=== PATIENT | male | born 1965 ===

== ENCOUNTER 2018-09-18 09:34 | Inpatient (IN) ==
[2018-09-18] MEDS ORDERED: NITROGLYCERIN TOP ONE (10:10)
[2018-09-18 10:23] LABS: BASO# 0.03 X1000 (0.0-0.2); BASO% 0.4 % (0.0-0.8); EOS# 0.25 X1000 (0.0-0.7); HEMATOCRIT 37.1 % (42.0-52.0); HEMOGLOBIN 13.1 g/dL (14.0-18.0); IMM GRAN# 0.05 X1000 (0.0-0.04); IMM GRAN% 0.6 % (0.0-0.5); LYMPH# 1.56 X1000 (1.2-3.4); LYMPH% 18.5 % (20.5-51.1); MCH 29.9 PG (27-31); MCHC 35.3 g/dL (33-37); MCV 84.7 FL (81-99); MONO# 0.75 X1000 (0.11-0.59); MONO% 8.9 % (1.7-9.3); NEUT# 5.77 X1000 (1.4-6.5); NEUT% 68.6 % (42.2-75.2); PLT 255 X1000 (130-400); RBC 4.38 XMIL (4.7-6.1); RDW 13.2 % (11.5-14.5); WBC 8.41 X1000 (4.8-10.8)
--- NOTE | 2018-09-18 10:28 | Diag Imaging Result Doc PS360 ---
EXAM: CHEST-2 VIEWS 09/18/2018 HISTORY: cp TECHNIQUE: PA and lateral chest COMMENT: There is no evidence of acute cardiac or pulmonary disease. There are no previous studies available for comparison. IMPRESSION: No evidence of acute disease. Electronically signed by Yury Burton 09/18/2018 10:26 AM
[2018-09-18 10:51] LABS: URINE SOURCE CLEAN CATCH
[2018-09-18 10:53] LABS: BILIRUBIN URINE NEGATIVE (NEGATIVE); BLOOD URINE SMALL (NEGATIVE); COLOR YELLOW; GLUCOSE URINE 70 mg/dL (NEGATIVE); KETONE URINE NEGATIVE (NEGATIVE); LEUKOCYTES URINE NEGATIVE (NEGATIVE); NITRITE URINE NEGATIVE (NEGATIVE); PROTEIN URINE 300 mg/dL (NEGATIVE); SP GRAVITY URINE 1.003; TURBIDITY URINE CLEAR (CLEAR); UR EPITHELIAL CELLS <10 /HPF (<10); URINE BACTERIA NEGATIVE /HPF; URINE RBC <10 /HPF (<10); URINE WBC <10 /HPF (<10); UROBILINOGEN URINE NORMAL (NORMAL)
[2018-09-18 11:00] LABS: AGAP 13; ALB/GLOB RATIO 1.4; ALBUMIN 3.7 g/dL (3.5-5.0); ALKALINE PHOSPHATASE 46 U/L (32-122); BUN 17 mg/dL (8-22); CALCIUM 8.7 mg/dL (8.8-10.2); CHLORIDE 101 mmol/L (98-107); COSMO 279; CREATININE 1.8 mg/dL (0.7-1.2); GLUCOSE 197 mg/dL (70-104); GOT 17 U/L (10-34); GPT 17 U/L (10-44); LIPASE 78 U/L (13-60); POTASSIUM 4.1 mmol/L (3.5-5.1); SODIUM 136 mmol/L (136-145); TCO2 22 mmol/L (25-35); TOTAL BILIRUBIN 0.34 mg/dL (0.20-1.00); TOTAL PROTEIN 6.4 g/dL (6.3-8.3)
[2018-09-18 11:10] LABS: CK PROFILE 345 U/L (24-204)
[2018-09-18 11:42] LABS: CK INDEX 1.3 (0.0-2.5)
--- NOTE | 2018-09-18 12:56 | Diag Imaging Result Doc PS360 ---
EXAM: CT ABDOMEN/PELVIS W/O CONTRAST HISTORY: abd pain, TECHNIQUE: CT pelvis without contrast COMPARISON: 02/03/2018 FINDINGS: No calcified gallstones or adjacent inflammation. No focal hepatic abnormality identified on this noncontrasted exam. Normal spleen, pancreas, and adrenal glands. No renal stones. No hydronephrosis. Moderate atherosclerosis. No aortic aneurysm. There is stool throughout the colon. No bowel obstruction. Normal appendix. No abscess. There are small mesenteric nodes. No ascites. The urinary bladder is distended. No focal abnormality. Normal prostate. There is a small fat filled left hernia. IMPRESSION: Constipation This exam was performed using automated exposure control, adjustment of mA or kV according to patient size, and/or use of iterative reconstruction technique. Electronically signed by Samir Christy 09/18/2018 12:54 PM
--- NOTE | 2018-09-18 14:39 | EKG Report ---
Test Performed on : 09/18/2018 09:43:34 AM Test Reason : ED. No order in [place] Blood Pressure : / mmHG Vent. Rate : 090 BPM Atrial Rate : 090 BPM P-R Int : 148 ms QRS Dur : 064 ms QT Int : 336 ms P-R-T Axes : 061 015 -54 degrees QTc Int : 411 ms Normal sinus rhythm. Nonspecific T wave abnormality Abnormal ECG No previous ECGs available Unconfirmed Result
[2018-09-18] MEDS ORDERED: MORPHINE IV PRN (16:07)
[2018-09-18] MEDS ORDERED: ZOFRAN IV PRN (16:07)
[2018-09-18] MEDS ORDERED: NS 1,000 ML IV ONE (16:09)
[2018-09-18] MEDS ORDERED: NICODERM PATCH TD PRN (16:18)
[2018-09-18] MEDS ORDERED: LABETALOL IV PRN (16:18)
[2018-09-18] MEDS ORDERED: LOVENOX SUBQ SCH (16:30)
--- NOTE | 2018-09-18 17:23 | HISTORY AND PHYSICAL ---
PRIMARY CARE PHYSICIAN: Dr. Frazier. CHIEF COMPLAINT: Chest pain. HISTORY OF PRESENT ILLNESS: Mr. Poole is a 52-year-old [place] male with a history of diabetes mellitus and apparent chronic kidney disease as well as hypertension, who presents to the ER with chest pain that began last night. Around 9:30 he was sitting in his chair watching TV and he began experiencing a left-sided chest pain. It was initially nonradiating. It did last throughout the night. It was more pressure than sharp sensation. He was unable to sleep. This morning he got up and the pain was still there but somewhat worse. He was short of breath and did become nauseous. At that time the pain did radiate to the back, so he decided to come to the ER. In the ER, he had an EKG done which did show sinus rhythm with nonspecific ST changes. Initial troponin negative. He does have a creatinine of 1.8 and is slightly anemic. He denies abdominal pain. No lower extremity edema. No orthopnea. No fever or chills. No cough or congestion. We are going to admit him for further treatment and evaluation. Of note, he states that he goes to the gym often and does not get chest pain when exercising on the treadmill. PAST MEDICAL HISTORY: 1. Diabetes mellitus, type 2, not requiring insulin. 2. Hypertension. 3. Apparent chronic kidney disease. Reviewing his creatinine in the past, he has a creatinine of 1.[address] back to almost a year ago. 4. Chronic back pain. SURGICAL HISTORY: None. SOCIAL HISTORY: He smokes one cigarette a day. Denies alcohol or drug use. He [place] here in town. 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 FAMILY HISTORY: Father from malignancy of the neck. Mother is alive with no medical problems, per his report. HOME MEDICATIONS: Not yet compiled. ALLERGIES: No known drug allergies. PHYSICAL EXAMINATION: VITAL SIGNS: Blood pressure 133/82; heart rate 83; respiratory rate 17; O2 saturation 97% on room air; temperature 97.9. GENERAL: This is a well developed, well nourished 52-year-old Mosotho male lying in the hospital bed in no acute distress. NEUROLOGICAL: Awake, alert, and oriented. Follows commands. No focal deficits. HEENT: Head is atraumatic and normocephalic. Pupils are equal, round and reactive to light. Oral mucosa is a bit dry. NECK: Trachea is midline. There is no JVD. CHEST: Clear to auscultation. CARDIOVASCULAR: Regular rate and rhythm. S1 and S2 are noted. No murmurs. GASTROINTESTINAL: Soft, nontender and nondistended. Bowel sounds active. EXTREMITIES: No edema. Pulses are 1+ bilaterally. DIAGNOSTIC DATA: Chest x-ray is negative. CT of the abdomen and pelvis shows constipation; small left fat filled hernia. WBC 8.41, hemoglobin 13.1, hematocrit 37.1, platelet count 255,000. D dimer 0.38. Sodium 136, potassium 4.1, chloride 101, CO2 22, anion gap 13, BUN 17, creatinine 1.8, glucose 197. Hemoglobin A1c 9. Calcium 8.7. LFTs negative. CK 345. Troponin negative. Albumin 3.7. Lipase 78. UA shows protein, glucosuria, and small blood - otherwise negative. ASSESSMENT AND PLAN: 1. Chest pain/Unstable angina: occurring at rest. He does not have any real exertional component but he does have risk factors, including what appears to be poorly controlled diabetes and hypertension. We will admit him and rule him out for myocardial infarction. Will check an echocardiogram and lovenox therapeutic dose. He does have a very slightly elevated lipase but denies any abdominal pain. No nausea or vomiting except for the one episode of nausea earlier today with the chest pain. CT of the abdomen and pelvis does not show any acute abnormalities. Will make sure that he is getting aspirin. Check cholesterol. Likely put him on a statin if he is not already on one. 2. Renal insufficiency/Acute kidney injury: although this does appear to be somewhat of a chronic issue. The CT abdomen and pelvis did now show any renal obstruction. Will check urine electrolytes and make sure he is not getting nephrotoxins and lightly hydrate. 3. Poorly controlled diabetes mellitus: Hemoglobin A1c 9, revealing poor control. Will put him on high-dose sliding scale, likely add low dose twice a day long-acting. 4. Nicotine dependence: We have advised the patient to quit smoking. Will add a nicotine patch if requests and have it as needed. 5. Deep venous thrombosis prophylaxis with Lovenox. Further recommendations to follow. Dictated by KE Ahumada for Emile Poole MD cc: KE Ahumada MD I agree with most components of history, physical, assessment and plan. A separate addendum has been dictated. MTDD
[2018-09-18 17:55] LABS: PROTEIN CREAT RATIO 3.7; UR CREAT RANDOM 82.5 mg/dL (14-26)
[2018-09-18 18:05] LABS: UR PROT RANDOM 331.7 mg/dL
[2018-09-18] MEDS ORDERED: ASPIRIN PO STA (18:25)
[2018-09-18] MEDS ORDERED: NITROGLYCERIN SL PRN (18:27)
[2018-09-18] MEDS ORDERED: LIPITOR PO SCH (21:00)
[2018-09-18] MEDS: MIRALAX PO SCH (21:42)
[2018-09-18] MEDS: LOPRESSOR PO SCH (21:47)
[2018-09-18] MEDS: LOVENOX SUBQ SCH (21:47)
[2018-09-18] MEDS: HUMALOG SUBQ SCH (21:53)
--- NOTE | 2018-09-18 22:16 | HISTORY AND PHYSICAL ---
ADDENDUM: To history and physical dictated by nurse practitioner. I agree with most components of history, physical, assessment, and plan. In brief, Mr. Poole is 52 years old, origin man with past medical history of non-insulin- dependent diabetes mellitus, essential hypertension, active tobacco use who came in with complaints of substernal dull achy chest pain, which had started yesterday night, which lasted for about a couple of hours at rest, and it relieved after he took his aspirin and blood pressure medication. He had similar chest pain episode today morning at about 5 a.m., and he was watching TV and it was again in the substernal region which started radiating towards his back associated with headache and left shoulder pain. He did not have any shortness of breath or palpitations. Considering these symptoms, he decided to come to the emergency room. In the emergency room, he was given nitroglycerin, which helped and his chest pain resolved. Currently he is chest pain free. His EKG does have ST-segment depression in chest leads V4 to V6 with mild T-wave inversions as well. He also has mild ST-segment depression and T inversion in lead AVF. His troponins initially was negative. PHYSICAL EXAMINATION: VITAL SIGNS: Currently vitals suggest temperature of 97.9 degrees, pulse of 94, respiratory rate 25, blood pressure 144/86. He is saturating 98% on room air. GENERAL: He does not appear in any acute distress. Oral cavity is moist. LUNGS: Air entry bilaterally equal. No wheeze, rhonchi, crackles. CARDIOVASCULAR: S1, S2 normal. No murmur or gallop. ABDOMEN: Soft, nontender. No lower extremity edema. He does not have any hepatosplenomegaly. No jugular venous distention. He is alert and oriented x3. LABORATORY DATA: Suggestive of normocytic anemia, normal platelet count. His D-dimer was 0.38. His BMP is suggestive of elevated creatinine. Calculated GFR is 50. It looks like he does have baseline chronic kidney disease stage 2 to stage 3A, likely because of diabetes. He also has uncontrolled diabetes with elevated hemoglobin A1c. MICROBIOLOGY: No data. IMAGING: He got abdomen and pelvis CT for abdominal pain, which currently he is not complaining of, which had detected constipation. ASSESSMENT AND PLAN: 1. Typical angina with suspicion of unstable angina with diabetes, active tobacco use, age, essential hypertension, and chronic kidney disease being risk factors. 2. Essential hypertension. 3. [id number] diabetes mellitus with uncontrolled hyperglycemia. 4. Chronic kidney disease stage 2 to stage 3A. PLAN: I will start patient on metoprolol. We will give him stat aspirin. We will start him on enoxaparin therapeutic dose. I will consult Cardiology if he would need stress test versus coronary angiography. Considering his chronic kidney disease, angiography could be challenging; however, I would appreciate Cardiology recommendation. Plan of care was discussed with the patient. All of his questions have been answered. cc: Emile Poole MD
[2018-09-19] MEDS: HUMALOG SUBQ SCH (06:00)
[2018-09-19 07:57] LABS: HEMATOCRIT 41.6 % (42.0-52.0); HEMOGLOBIN 14.2 g/dL (14.0-18.0); MCH 29.6 PG (27-31); MCHC 34.1 g/dL (33-37); MCV 86.7 FL (81-99); MPV 9.9 FL (7.4-10.4); RBC 4.8 XMIL (4.7-6.1); RDW 13.6 % (11.5-14.5); WBC 6.53 X1000 (4.8-10.8)
[2018-09-19 08:34] LABS: AGAP 13; BUN 19 mg/dL (8-22); CALCIUM 9.1 mg/dL (8.8-10.2); CHLORIDE 101 mmol/L (98-107); COSMO 277; CREATININE 1.8 mg/dL (0.7-1.2); GLUCOSE 188 mg/dL (70-104); MAGNESIUM 2.2 mg/dL (1.5-2.7); POTASSIUM 4.3 mmol/L (3.5-5.1); SODIUM 135 mmol/L (136-145); TCO2 21 mmol/L (25-35)
[2018-09-19] MEDS ORDERED: ASPIRIN PO SCH ×2 (09:00)
[2018-09-19] MEDS: LOVENOX SUBQ SCH (09:56)
[2018-09-19] MEDS: MIRALAX PO SCH (09:56)
[2018-09-19] MEDS: LOPRESSOR PO SCH (09:56)
--- NOTE | 2018-09-19 11:11 | ECHO REPORT ---
ORDER DATE: 09/18/2018 INTERPRETING PHYSICIAN: Dr. Bernardo Wood ECHOCARDIOGRAPHIC MEASUREMENTS: 1. Interventricular septum: 1.2 cm. 2. Posterior wall: 1.2 cm. 3. Diastolic diameter: 4.3 cm. 4. Left atrium: 3.4 cm. 5. Aortic root: 2.4 cm. SUMMARY OF THE 2-DIMENSIONAL IMAGIN. Aortic valve leaflets are trileaflet. 2. Mitral valve was normal. 3. Tricuspid valve was normal. 4. Pulmonic valve was normal. 5. There is mild tricuspid regurgitation. Peak velocity across the tricuspid valve less than 2 m/sec. 6. There is mild mitral regurgitation. 7. Peak velocity across the aortic valve less than 2 m/sec. There is no aortic stenosis or regurgitation. 8. Normal left ventricular cavity size. Borderline left ventricular hypertrophy. Estimated ejection fraction of 55% to 60%. Endocardium not well visualized in all views. 9. There is diastolic dysfunction, mild. 10. There is no pericardial effusion or obvious intracardiac mass or thrombus seen. cc: MD Johan Palmer CRNP
[2018-09-19 12:00] VITALS: BP 127/61
--- NOTE | 2018-09-19 13:41 | CARDIOLOGY CONSULTATION ---
DATE: 09/19/2018 Cardiology was consulted for chest pain. HISTORY OF PRESENT ILLNESS: Mr. Poole is a 52-year-old gentleman, who is admitted with chest pain. Cardiology was consulted. The patient has history of diabetes, hypertension, active tobacco use. The patient had retrosternal chest discomfort early in the morning and associated with a blood pressure going up to 180. Describes as substernal without any significant radiation to the back. 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 He describes as moderate intensity chest discomfort. He came to the emergency room. His electrocardiogram revealed normal sinus rhythm, nonspecific ST-T changes. He was ruled for myocardial infarction by cardiac enzymes. At the time of my examination, the patient was pain free. He states that in [place] in April 2018 he had an arteriogram done and per patient there was only minimal blockages. At that time, he was not having any significant chest pains. In the interim between April and now, he has not had any chest pain other than these 2 episodes. REVIEW OF SYSTEMS: A 14-point review of system was done. GI system: There is no history of nausea, vomiting, diarrhea. There is no history of hematemesis or melena. Central nervous system: No focal weakness to suggest a CVA, TIA. system: There is no dysuria or hematuria. CURRENT MEDICATIONS: Include aspirin 81 mg a day, Lipitor 40 mg a day, insulin as directed, metoprolol 12.5 mg b.i.d., Lovenox. ALLERGIES: He is not known to be allergic to any medication. SOCIAL HISTORY: He smokes a cigarette occasionally. FAMILY HISTORY: Father from malignancy. PHYSICAL EXAMINATION: Vital Signs: Blood pressure was 133/80. Cardiovascular system: Normal jugular venous pressure. There is no thyromegaly. There is no carotid bruit. First and second heart sounds were heard. There is no S3, S4, or gallop. Respiratory system: Normal air entry. There are no crepitations or rhonchi. Abdomen: Soft, nontender. There was no guarding or rigidity. Bowel sounds were heard. Central nervous system: Alert, oriented. Was moving all 4 extremities. Extremities: Examination of his extremities revealed no pedal edema. HEENT: Atraumatic, normocephalic. Pupils were equal and reacting to light. He had a CT scan of his abdomen and pelvis done, which did not reveal any significant abnormality other than constipation. Chest x-ray was unremarkable. His electrocardiogram revealed normal sinus rhythm with nonspecific ST-T changes. LABORATORY EXAMINATION: Revealed WBC 6.53, hemoglobin 14.2, hematocrit 41, platelet count of 262. Sodium 135, potassium 4.3, BUN 19, creatinine 1.8. Cardiac enzyme negative. LDL 110. ASSESSMENT AND PLAN: Mr. Rishi Poole is a 53-year-old gentleman with history of hypertension, diabetes, comes with complaints of having had recurrent chest discomfort. His electrocardiogram revealed nonspecific ST-T changes. Cardiac enzyme was negative. The patient had an echocardiogram, which revealed preserved left ventricular systolic function, please detailed echocardiogram report. He states that he underwent an arteriogram in [place] in April 2018, per patient there was minimal blockages, however, I do not have the copy of the report. Regardless given his symptoms, the fact that he has been pain free, and past medical history, we will set him up to undergo a Cardiolite stress test to assess for and rule out ischemia. RECOMMENDATIONS: 1. As far as medication are concerned, continue with the aspirin and beta-henry. He had episode of elevated blood pressure of 180 on the night before admission associated with chest discomfort as well. 2. He has renal insufficiency. Do not have previous blood work to compare with. Thank you for the consult. Will follow hospital course. cc: Bernardo Wood MD
--- NOTE | 2018-09-19 23:05 | DISCHARGE SUMMARY ---
ADMISSION DATE: 09/18/2018 DISCHARGE DATE: 09/19/2018 DISCHARGE DISPOSITION: Home. DISCHARGE CONDITION: Patient is alert and oriented x3. Hemodynamically stable. Does not have any chest pain, shortness of breath or palpitation. CONSULTATIONS DURING HOSPITALIZATION: Bail Bondsman, Dr. Wood. DISCHARGE DIAGNOSES: 1. Typical angina with suspicion of coronary artery disease and suspected unstable angina. 2. Essential hypertension. 3. Noninsulin-dependent diabetes mellitus with uncontrolled hyperglycemia. 4. Kidney dysfunction, likely chronic kidney disease stage 3a to stage 2. OTHER DIAGNOSES: 1. History of hyperlipidemia. 2. History of coronary angiography in April 2018 in [facility]. The results of which are not available. VITALS: At the time of discharge, temperature 97.6 degrees, pulse 68, respiratory rate 22, blood pressure 127/61, saturating 99% on room air. PHYSICAL EXAMINATION: General: Does not appear in acute distress. HEENT: Oral cavity is moist. Lungs: Air entry bilaterally equal. No wheeze, rhonchi, crackles. Cardiovascular: S1, S2 normal. No murmur, rub, or gallop. Abdomen: Soft, nontender. Extremities: No lower extremity edema. DISCHARGE MEDICATIONS: Sitagliptin 100 mg b.i.d., lisinopril 40 mg at nighttime, ergocalciferol 50,000 capsules, 1 tablet every 7 days, nitroglycerin 0.4 mg sublingual every 5 minutes for chest pain, 5 tablets have been prescribed, aspirin 81 mg daily, 15 tablets have been prescribed, tramadol 50 mg every 6 hours as needed for pain. SIGNIFICANT LABS: During hospital discharge, WBC 6.5, hemoglobin 14.2, platelet 264,000. D-dimer 0.3. Sodium 135, potassium 4.3, BUN 19, creatinine 1.8. Hemoglobin A1c 9, calcium of 9.1, magnesium of 2.2. Cholesterol suggestive of LDL of 110. Significant microbiology none. SIGNIFICANT IMAGING: Chest x-ray had suggested no evidence of acute disease. Abdomen and pelvis CT performed for abdominal pain had constipation. Echocardiogram had ejection fraction of 55 to 60 percent, with mild diastolic dysfunction without any pericardial effusion or obvious intracardiac mass. It did not have any documented regional wall motion abnormality. EKG had suggested nonspecific T-wave abnormalities involving V4 to V6. HOSPITAL COURSE SUMMARY: Mr. Poole is 53 years old origin man with past medical history of kidney dysfunction, hypertension, noninsulin-dependent diabetes mellitus, who came in with typical anginal pain which had started at rest the day prior to presentation. At that time, he had measured his blood pressure, which was noted to be elevated to 180 systolic. He had taken his blood pressure medication and aspirin, following which he had started feeling better. However, on the day of arrival (morning time), he had again experienced chest pain which was described as heaviness with occasionally radiating to back and left shoulder associated with an episode of vomiting, so he decided to come to the emergency room. His troponin's were negative and less than 0.010. His EKG has nonspecific T-wave inversions in V4 to V6. Considering his typical nature and multiple risk factors, he was given aspirin and nitroglycerin in the emergency room. Nitroglycerin had relieved his chest pain. He was started on enoxaparin therapeutic dose and Cardiology was consulted, who evaluated the patient the next day. Considering his typical symptoms, stress test versus angiography were discussed with the patient. However, patient, at that time, reported that he had coronary angiography in April 2018 in [facility] and was told that he only had 50% blockage in 1 of his blood vessels, the details of which are unclear. The patient was advised to stay back so that we can get the stress test done for further risk stratification or possibly consider coronary angiography; however, patient was adamant about leaving, citing social issues. The patient was explained about the risk of leaving without proper investigation into his suspected coronary artery disease, including, but not limited to sudden cardiac and acute myocardial infarction, and he understood it. So, after discussion with the cable respooler and patient at bedside, it was decided that the patient would get outpatient nuclear medicine stress test on 09/21/2018, for which an computerized order has been placed. The patient would also be provided a prescription for that. The patient was given a prescription for nitroglycerin and aspirin as well. At bedside, the patient and his son were explained to about the risks, benefits, and course of coronary artery disease, and all of their questions have been answered. TIME SPENT: More than 30 minutes were spent in discharging this patient. cc: Emile Poole MD
--- NOTE | 2018-09-21 07:36 | EKG Report ---
Test Performed on : 09/19/2018 1:02:14 PM Test Reason : Follow up ST T Blood Pressure : / mmHG Vent. Rate : 068 BPM Atrial Rate : 068 BPM P-R Int : 156 ms QRS Dur : 068 ms QT Int : 372 ms P-R-T Axes : 020 029 017 degrees QTc Int : 395 ms Normal sinus rhythm. Nonspecific T wave abnormality Abnormal ECG When compared with ECG of 18-SEP-2018 09:43, (Unconfirmed) No significant change was found Unconfirmed Result
--- NOTE | 2018-09-23 07:08 | PROVIDER DOCUMENTATION ---
This chart was entered by Faith Adam Scribe, acting as scribe for Tomas Lopez MD. HPI-Chest Pain - General Chief Complaint: Chest Pain Stated Complaint: CP Time Seen by Provider: 09/18/18 09:54 Source: patient Allergies/Adverse Reactions: Patient Allergies Allergy/AdvReac Type Severity Reaction Status Date / Time No Known Allergies Allergy Verified 02/03/18 09:46 Home Medications: Home Medication List Medication Instructions Recorded Confirmed Last Taken Type Ergocalciferol (Vitamin D2) 1 tab PO DIRECTED 02/03/18 02/03/18 02/02/18 12:00 History [Vitamin D] Lisinopril 40 mg PO HS 02/03/18 02/03/18 02/02/18 19:00 History Sitagliptin [Januvia] 100 mg PO BID 02/03/18 02/03/18 02/03/18 04:30 History Tramadol [Ultram] 50 mg PO Q6H PRN PRN #20 tab 02/03/18 Unknown Rx Aspirin 81 mg PO DAILY #15 chewtab 09/19/18 Unknown Rx Nitroglycerin Sl [Nitroglycerin] 0.4 mg SUBLINGUAL Q5M PRN PRN #5 09/19/18 Unknown Rx tab - History of Present Illness-CP Nature of Presenting Problem: 52 yom presents to the ed with c/o intermittent chest pain, sob and n/v acute onset last night 1899. pt sts all sx have resolved except chest pain which has improved but still present. pt on exam appears anxious and mild distress Location: reports: substernal Chest Pain Radiation: reports: no radiation Quality of Pain: reports: aching Severity in ED: mild Onset/Duration: last night (1899) Timing: still present Context/Activities at Onset: reports: light activity Modifying Factors: improves with: nothing Associated Symptoms: reports: nausea, shortness of breath, vomiting. denies: abdominal pain, back pain, dizziness Nitro Today/Relief: no nitro taken today Aspirin Treatment Today: 325 mg x 1, provided at home Prior Chest Pain/Cardiac Workup: reports: no prior chest pain Similar Symptoms Previously?: No Recently Seen Here or By Another Healthcare Provider: No Review of Systems - Adult - REVIEW OF SYSTEMS - ADULT ROS:: ROS per family (son translate) Constitutional: denies: chills, fever Eyes: reports: no symptoms reported Ears, Nose, Mouth & Throat: reports: no symptoms reported Cardiovascular: reports: chest pain. denies: palpitations, syncope Respiratory: reports: see HPI, shortness of breath. denies: cough, wheezing Gastrointestinal: reports: see HPI, nausea, vomiting. denies: abdominal pain, diarrhea Genitourinary: reports: no symptoms reported Musculoskeletal: reports: no symptoms reported Integumentary: reports: no symptoms reported Neurological: reports: no symptoms reported Psychiatric: reports: no symptoms reported Endocrine: reports: no symptoms reported Hematologic/Lymphatic: reports: no symptoms reported Allergic/Immunologic: reports: no symptoms reported All Other Systems: Reviewed and Negative Past History - Adult - PAST MEDICAL HISTORY-ADULT Review of Records: reports: Nursing Assessment Review, Medications Reviewed Major Childhood Illnesses: reports: denies history Cardiovascular: reports: HTN, hyperlipidemia Respiratory: reports: denies history Gastrointestinal: reports: denies history Genitourinary: reports: kidney stones Musculoskeletal: reports: denies history Neurological: reports: denies history Psychiatric: reports: denies history Endocrine/Immune: reports: denies history Other Conditions: reports: denies history - PRIOR SURGERIES/PROCEDURES Surgical/Procedure History: reports: none - IMMUNIZATION STATUS Childhood Immunizations: See Nurse Assessment Flu Vaccine: See Nurse Assessment - FAMILY HISTORY Family History: reviewed, not pertinent - SOCIAL HISTORY Smoking: cigarettes, less than 1 pack/day Provider spent 3-5 mins advising pt. on dangers of tobacco.: Discussed manners to quit use, and f/u contacts for add'l counseling. Substance Use: alcohol Alcohol Use Frequency: occasionally Number of drinks per typical drinking period:: 3-4 drinks Living Situation: family Physical Exam-General - PHYSICAL EXAM-ADULT Initial Vital Signs Reviewed: Yes - CONSTITUTIONAL General Appearance: alert, mild distress, anxious - EYES Eyes: PERRL/EOMI, pink conjunctivae - HEAD, EARS, NOSE, MOUTH & THROAT HENMT: moist mucous membranes, normal ENT inspection - NECK Neck: non-tender, full range of motion, supple, normal inspection - RESPIRATORY Respiratory: chest non-tender, lungs clear, normal breath sounds - CARDIOVASCULAR Cardiovascular: normal peripheral pulses, regular rate, rhythm - GASTROINTESTINAL (ABDOMEN) Abdominal Exam: normal bowel sounds, non tender, soft - LYMPHATIC Lymphatic: no adenopathy - MUSCULOSKELETAL Back Exam: normal inspection, no CVA tenderness, no vertebral tenderness Extremity: normal range of motion, non-tender, normal inspection, no pedal edema , no calf tenderness, normal capillary refill, pelvis stable - SKIN Integumentary: normal color, normal turgor, warm/dry - NEUROLOGIC Neurologic: grossly normal, no motor/sensory deficits - PSYCHIATRIC Psych/Mental Status: normal mood/affect, normal thought content, normal thought process, oriented x 3 - HEART Score HEART Score: History: Moderately Suspicious HEART Score: ECG: Non-Specific Repolarization Disturbance/LBBB/PM HEART Score: Age: 45-65 Years HEART Score: Risk Factors for Atherosclerotic Disease: 1 or 2 Risk Factors HEART Score: Troponin: < or = Normal Limit Total HEART Score:: 4 Progress - PLAN OF CARE/RESULTS Progress/Plan/Lab Results: Orders Category Date Time Status Admit [facility] Routine AdmDCTranf 09/18/18 13:33 Active FSBS/Accucheck Result AC + HS Care 09/18/18 15:21 Active Notify MD if DIRECTED Care 09/18/18 15:21 Active Saline Loc DIRECTED Care 09/18/18 15:21 Active Vital Signs Order Q 4-HR ASSESS Care 09/18/18 15:21 Active Z-Document. for Tele Applied ORDERED Care 09/18/18 15:21 Active Heart Healthy Diet Diet 09/18/18 14:16 Completed CHEST-2 VIEWS [RAD] Stat Exams 09/18/18 10:[address] ABDOMEN/PELVIS W/O CONTRAST [CT] Stat Exams 09/18/18 11:58 Completed A1C HGB W EST AVG GLUCOSE [CHEM] Timed Lab 09/18/18 10:07 Completed BASIC METABOLIC PANEL [CHEM] DAILY Lab 09/19/18 07:37 Completed CBC WITH ELECTRONIC DIFF [HEME] Stat Lab 09/18/18 10:07 Completed CBC WITH NO DIFF [HEME] DAILY Lab 09/19/18 07:37 Completed CK PROFILE [SP CHEM] Stat Lab 09/18/18 10:07 Completed CK TOTAL [CHEM] Q8H Lab 09/18/18 18:30 Completed CK TOTAL [CHEM] Q8H Lab 09/18/18 23:23 Completed CK TOTAL [CHEM] Q8H Lab 09/19/18 07:37 Completed COMPREHENSIVE METABOLIC PANEL [CHEM] Stat Lab 09/18/18 10:07 Completed D-DIMER [COAG] Stat Lab 09/18/18 10:07 Completed LIPASE [CHEM] Stat Lab 09/18/18 10:07 Completed LIPID PROFILE W/DIR LDL [LIPIDS] Routine Lab 09/19/18 07:37 Completed MAGNESIUM [CHEM] DAILY Lab 09/19/18 07:37 Completed TROPONIN T Q8H Lab 09/18/18 18:30 Completed TROPONIN T Stat Lab 09/18/18 10:07 Completed URINALYSIS W/POSS RFLX CULT [URINALYSIS] Stat Lab 09/18/18 10:42 Completed Nitroglycerin Med 09/18/18 10:10 Discontinued 1 inch TOP NOW ONE Telemetry [OM.EQ] Routine Oth 09/18/18 15:21 Active EKG [EKG] Stat Ther 09/18/18 09:43 Draft Echo Spec/Color Doppler Routine Ther 09/18/18 15:21 Completed Transfer/Admit Order [TRANSFER] Routine Transfer 09/18/18 15:20 Completed Result Diagrams: 09/19/18 07:37 09/19/18 07:37 - REASSESSMENT Reassessment #1 Time Reassessed: 10:51 (pt is resting in bed with family at bedside) Status: improving - EKG 1 Time of EKG reading by physician:: 09:43 EKG Read and Signed by:: Tomas Lopez EKG Interpretation (*Must complete 3 of following elements*): Abnormal Rate: 90 Rhythm: nsr [place]: normal QRS: normal [place] Interval: normal ST Wave: normal - XRAY 1 XRAY: Bilateral XRAY Study: Chest Impression: See EMR Report (XAM: CHEST-2 VIEWS 09/18/2018 HISTORY: cp TECHNIQUE: PA and lateral chest COMMENT: There is no evidence of acute cardiac or pulmonary disease. There are no previous studies available for comparison. IMPRESSION: No evidence of acute disease. Electronically signed by Yury forbes 09/18/2018 10:26 AM 09/18/18 1026 Interpreting Physician: Yury Burton MD Dictated Date/Time: 09/18/18 1025 cc: Tomas Lopez MD; Paradise Meraz MD) - CONSULTS/PCP/HOSPITALIST Notification #1 *Consult/PCP/Hospitalist*: hospitalist Time Discussed: 13:30 Consult Disposition: Admit Departure - Departure Date of Disposition Decision: 09/18/18 Time of Disposition Decision: 13:33 DIAGNOSIS: Nonspecific chest pain, Tobacco use disorder Disposition: ADMITTED INPATIENT 09 Certified Medical Emergency: Emergent Condition: Stable - Critical Care Note This patient required my direct & personal management of CC.: No Attestation - Physician/ UYEN Attestation Patient care was provided by Advanced Practice Provider:: No The physician spent face to face time with patient:: Yes Advanced Practice Provider documentation review:: Supervising physician onsite and consulted in the evaluation and care of this patient. The physician did have a face to face encounter with the patient. This chart was documented by the indicated scribe, (Faith Adam Scribe) and accurately reflects the services I performed and decisions made by me, Tomas Lopez MD, as attested by the provider's signature.
== END 2018-09-19 14:43 | disposition home or self-care (01) | DRG 303 ==
LOC: ED 09:34 → EDIPHOLD 15:38 → 3N 17:02
PROVIDERS: ATTEND Internal Medicine
CPT/HCPCS: 71020; 71046; 74176; 80048; 80053; 80061; 81001; 82550; 82553; 82570; 82948; 83036; 83690; 83721; 83735; 83935; 84156; 84300; 84443; 84484; 85025; 85027; 85379; 87205; 93005; 93306; 99285; A9270; J1650; J7030; XXXXX